=== PATIENT | female | born 2005 | race Two or more races ===

== ENCOUNTER 2024-11-21 06:14 | Emergency (ER) | payer OTHER ==
[~2024-11-21] VITALS: Ht 152.4 cm; Wt 52.2 kg
[2024-11-21] MEDS ORDERED: TETANUS & DIPHTHERIA TOX,ADULT 0.5 ML VIAL IM STA (06:37)
[2024-11-21] MEDS ORDERED: DIPHTH,PERTUSS(ACELL),TET VAC 0.5 ML SYRINGE IM ONE (07:19)
[2024-11-21] MEDS ORDERED: LIDOCAINE HCL 1% 10ML VIAL ONE (07:20)
[2024-11-21] MEDS ORDERED: ACETAMINOPHEN 500 MG GEL..CAP PO STA (07:44)
[2024-11-21] MEDS ORDERED: ACETAMINOPHEN 500 MG GEL..CAP PO ONE (07:59)
== END 2024-11-21 08:23 | disposition home or self-care (01) ==
LOC: ER 06:14
DX: S01.01XA Laceration without foreign body of scalp, initial encounter (principal); X83.8XXA Intentional self-harm by other specified means, initial encounter; Y93.89 Activity, other specified; Y92.511 Restaurant or cafe as the place of occurrence of the external cause; Y99.9 Unspecified external cause status